=== PATIENT | male | born 1965 | race Caucasian/White ===

== ENCOUNTER 2020-05-08 17:16 | Emergency (ER) | payer OTHER ==
[2020-05-08] MEDS ORDERED: METHYLPREDNISOLONE INJ 125 MG/2 ML SDV IM ONE (18:07)
[2020-05-08] MEDS ORDERED: FAMOTIDINE 20 MG TABLET PO ONE (18:07)
--- NOTE | 2020-05-08 18:09 | ER Document Report ---
ED Medical Screen (RME) - General Chief Complaint: Allergic Reaction Stated Complaint: POSSIBLE ALLERGIC REACTION Time Seen by Provider: 05/08/20 18:02 - HPI Notes: 05/08/20 18:08 54-year-old male to the emergency department with allergic reaction to multiple ambulates that occurred about 90 minutes ago. States he was outside when he noticed a whole bunch of ants on him try to get them off and he started to bite him on his left foot. After he was bitten he started to notice that he started to develop a rash up his legs onto his arms and onto his face. He states he felt like he had his hearing going and his eyes got really blurry and swollen and he felt like his throat was closing. He states he took 325 mg Benadryl and those symptoms of the ears eyes and throat have gotten significantly better. 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 He states he has never had an reaction to ant bites like this before. On brief exam today he has diffuse [place] area to arms legs abdomen. I performed a brief medical screening exam on the patient determined that the patient needs further evaluation and management by main side provider. I have placed initial orders to help expedite care. - Related Data Allergies/Adverse Reactions: bees Allergy (Uncoded 05/08/20 18:05) Home Medications: propanol Past Medical History - Social History Frequency of alcohol use: Rare Drug Abuse: None Physical Exam - Vital signs Vitals: Temp Pulse Resp BP Pulse Ox 98.6 F 70 18 130/79 H 98 05/08/20 17:22 05/08/20 17:22 05/08/20 17:22 05/08/20 17:22 05/08/20 17:22 Course - Vital Signs Vital signs: Temp Pulse Resp BP Pulse Ox 98.6 F 70 18 130/79 H 98 05/08/20 17:22 05/08/20 17:22 05/08/20 17:22 05/08/20 17:22 05/08/20 17:22
--- NOTE | 2020-05-08 20:38 | ER Document Report ---
ED General - General Chief Complaint: Allergic Reaction Stated Complaint: POSSIBLE ALLERGIC REACTION Time Seen by Provider: 05/08/20 18:02 Notes: 54-year-old male presents with burning and itching to the left foot at the site of multiple fire ant bites. Began about 3 hours ago. 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 Developed redness and swelling in left foot which quickly spread into generalized hives eye and face swelling with cough and shortness of breath. Did not receive epi. He is now about 3 hours out from his initial Benadryl dose has received steroids and Pepcid here in triage. His symptoms of all resolved except the redness on his foot. He had a remote reaction to bee stings as a young boy but has not had anything since. - Related Data Allergies/Adverse Reactions: bees Allergy (Uncoded 05/08/20 18:05) Home Medications: propanol Past Medical History - General Information source: Patient - Social History Smoking Status: Current Some Day Smoker Frequency of alcohol use: Rare Drug Abuse: None Family History: None Review of Systems - Review of Systems Notes: REVIEW OF SYSTEMS GEN: Denies fever, chills, weight loss ENT: Swelling throat tightness resolved EYES: Denies blurry vision, eye pain, discharge CV: Denies chest pain, palpitations, edema RESP: Denies cough, shortness of breath, wheezing GI: Denies abdominal pain, nausea, vomiting, diarrhea MSK: Denies joint pain/swelling, edema, SKIN: Skin itching LYMPH: Denies swollen glands/lymph nodes NEURO: Denies headache, focal weakness or numbness, dizziness PSYCH: Denies depression, suicidal or homicidal ideation PHYSICAL EXAMINATION General: No acute distress, well-nourished Head: Atraumatic, normocephalic ENT: Mouth normal, oropharynx moist, no exudates or tonsillar enlargement Eyes: Conjunctiva normal, pupils equal, lids normal Neck: No JVD, supple, no guarding CVS: Normal rate, regular rhythm, no murmurs Resp: No resp distress, equal and normal breath sounds bilaterally GI: Nondistended, soft, no tenderness to palpation, no rebound or guarding Ext: No deformities, no edema, normal range of motion in upper and lower ext Back: No CVA or midline TTP Skin: Erythematous plaque on the dorsum of the left foot coalescent. No other rash erythema or skin changes Lymphatic: No lymphadeopathy noted Neuro: Awake, alert. Face symmetric. GCS 15. Physical Exam - Vital signs Vitals: Temp Pulse Resp BP Pulse Ox 98.6 F 70 18 130/79 H 98 05/08/20 17:22 05/08/20 17:22 05/08/20 17:22 05/08/20 17:22 05/08/20 17:22 Course - Re-evaluation Re-evalutation: 05/08/20 22:55 Resolved mild anaphylaxis without shock. Did not require EpiPen. Is 3 hours out not having any recrudescent symptoms and is already received H2 gabriella and steroids. Will prescribe lprtcz-lby-obfmi steroids for 5 days, ethfb-isn-[id number] double antihistamine blockade for 3 days and a double EpiPen package. I have discussed with the patient there likely diagnosis, aftercare plan, follow-up plans and my usual and customary return precautions. They verbalized understanding of this. - Vital Signs Vital signs: Temp Pulse Resp BP Pulse Ox 98.2 F 60 18 120/77 100 05/08/20 21:31 05/08/20 21:31 05/08/20 21:31 05/08/20 21:31 05/08/20 21:31 Discharge - Discharge Clinical Impression: Anaphylaxis Qualifiers: Encounter type: initial encounter Qualified Code(s): T78.2XXA - Anaphylactic shock, unspecified, initial encounter Condition: Good Disposition: HOME, SELF-CARE Instructions: Anaphylaxis Kit ([facility]) Additional Instructions: Please take 2 Benadryl tablets equals 50 mg every 8 hours while awake for the next 3 days. Please take Pepcid 20 mg equals 1 tablet with breakfast and dinner for the next 3 days. Prescriptions: Prednisone [Deltasone 20 mg Tablet] 2 tab PO DAILY 5 Days tablet Epinephrine [Epipen 2-Bhaskar] 0.3 mg IJ PRN PRN #1 auto.injct PRN Reason:
[2020-05-08 21:32] VITALS: BP 120/77
== END 2020-05-08 21:32 | disposition home or self-care (01) ==
LOC: ER 17:16
DX: T78.2XXA Anaphylactic shock, unspecified, initial encounter (principal); X58.XXXA Exposure to other specified factors, initial encounter; F17.200 Nicotine dependence, unspecified, uncomplicated
CPT/HCPCS: 99284; 96372; J2930